=== PATIENT | female | born 1990 | race Two or more races ===

== ENCOUNTER 2022-03-31 09:32 | Outpatient (CLI) | payer OTHER | END 2022-03-31 09:36 | disposition home or self-care (01) | LOC: RAD 09:32 | PROVIDERS: ATTEND Obstetrics & Gynecology | DX: N92.0 Excessive and frequent menstruation with regular cycle (principal) ==

== ENCOUNTER 2023-11-19 16:50 | Emergency (ER) | payer OTHER ==
[~2023-11-19] VITALS: Ht 147.3 cm; Wt 60.8 kg
[2023-11-19 17:27] LABS: HEMATOCRIT 32.4 % (36.0-45.00); HEMOGLOBIN 10.4 g/dL (12.0-15.00); MEAN CELL VOLUME 72.1 fL (80.00-100.00); MEAN CORPUSCULAR HEMOGLOBIN 23.1 pg (27.00-32.0); PLATELET COUNT 422 K/uL (150-450)
== END 2023-11-19 19:45 | disposition home or self-care (01) ==
LOC: ER 16:50
PROVIDERS: Emergency Medicine
DX: O20.8 Other hemorrhage in early pregnancy (principal); Z3A.01 Less than 8 weeks gestation of pregnancy

== ENCOUNTER 2023-11-23 19:47 | Emergency (ER) | payer OTHER ==
[~2023-11-23] VITALS: Ht 147.3 cm; Wt 60.3 kg
== END 2023-11-24 03:51 | disposition home or self-care (01) ==
LOC: ER 19:47
DX: K59.01 Slow transit constipation (principal); R10.9 Unspecified abdominal pain; Z3A.08 8 weeks gestation of pregnancy

== ENCOUNTER 2023-12-22 09:59 | Outpatient (CLI) | payer OTHER | END 2023-12-22 10:09 | disposition home or self-care (01) | LOC: PRENATAL 09:59 | PROVIDERS: ATTEND Obstetrics & Gynecology Maternal & Fetal Medicine | DX: O36.80X0 Pregnancy with inconclusive fetal viability, not applicable or unspecified (principal); Z36.82 Encounter for antenatal screening for nuchal translucency; Z3A.12 12 weeks gestation of pregnancy ==

== ENCOUNTER 2024-05-06 10:00 | Outpatient (CLI) | payer OTHER ==
[~2024-05-06 10:00] MED LIST: FOLIC ACID0.8 M1 PO; PRENATAL TABLE1 EAC1 PO
== END 2024-05-06 10:01 | disposition home or self-care (01) ==
LOC: PRENATAL 10:00
PROVIDERS: ATTEND Obstetrics & Gynecology Maternal & Fetal Medicine
DX: O26.849 Uterine size-date discrepancy, unspecified trimester (principal); O36.8199 Decreased fetal movements, unspecified trimester, other fetus; Z3A.32 32 weeks gestation of pregnancy

== ENCOUNTER 2024-06-18 13:45 | Inpatient (IN) | payer OTHER ==
[~2024-06-18] VITALS: Ht 147.3 cm; Wt 77.6 kg
[2024-06-29 11:51] VITALS: BP 134/75
[2024-06-30] VITALS (8 sets, daily range): BP systolic 111–133; BP diastolic 67–83
[2024-06-30] MEDS ORDERED: MORPHINE SULFATE 4 MG/ML CARTRIDGE IV ONE (00:45)
[2024-06-30] MEDS ORDERED: RINGERS SOLUTION,LACTATED 1,000 ML IV SCH (00:45)
[2024-06-30 01:31] LABS: INR < 0.93; PARTIAL THROMBOPLASTIN TIME 25.3 SECONDS (22.0-34.0); PROTHROMBIN TIME 9.9 SECONDS (9.0-11.5)
[2024-06-30 01:33] LABS: URINE APPEARANCE Clear; URINE BILIRRUBIN Negative (NEGATIVE); URINE BLOOD Trace; URINE COLOR Yellow; URINE GLUCOSE Negative (NEGATIVE); URINE KETONE Negative (NEGATIVE); URINE LEUKOCYTE Large; URINE NITRATE Negative; URINE PROTEIN Negative (NEGATIVE); URINE UROBILINOGEN 0.2 E.U./dl
[2024-06-30 01:36] LABS: URINE BACTERIA 2747.8 uL (0.0-1933); URINE EPITHELIAL CELLS 57.3 uL (0.0-38.8); URINE WBC 94.6 uL (0.0-23.2)
[2024-06-30 01:38] LABS: URINE RBC 1.3 uL (0.0-20.8)
[2024-06-30 01:39] LABS: HEMATOCRIT 36.9 % (36.0-45.00); HEMOGLOBIN 12.4 g/dL (12.0-15.00); MEAN CELL VOLUME 84.7 fL (80.00-100.00); MEAN CORPUSCULAR HEMOGLOBIN 28.6 pg (27.00-32.0); MEAN CORPUSCULAR HGB CONC 33.7 g/dl (32.0-36.0); PLATELET COUNT 271 K/uL (150-450); RED BLOOD COUNT 4.36 M/uL (4.00-6.00); RED CELL DISTRIBUTION WIDTH 13.8 % (11.5-14.5)
[2024-06-30 02:12] LABS: ALBUMIN 2.7 gm/dL (3.4-5.0); BILIRUBIN TOTAL 0.3 mg/dL (0.3-1.2); CALCIUM 9.3 mg/dL (8.5-10.1); CREATININE SERUM 0.46 mg/dL (0.55-1.02); GFR 157.42; GLOBULINA 4.3 G/DL (2.4-3.5); POTASSIUM 4.25 mEq/L (3.5-5.1)
[2024-06-30] MEDS ORDERED: FAMOtidine 10 MG/ML (4ML VIAL) IV ONE (03:30)
[2024-06-30] MEDS ORDERED: OXYTOCIN 500 ML IV SCH (08:00)
[2024-06-30] MEDS ORDERED: IBUprofen 400 MG TABLET PO PRN (10:45)
[2024-06-30] MEDS ORDERED: ERYTHROMYCIN BASE OPHT 1GM EACH TUBE OP ONE (11:00)
[2024-06-30] MEDS ORDERED: LIDOCAINE HCL 1% 10ML VIAL IJ ONE (11:00)
[2024-06-30] MEDS ORDERED: CHLORHEXIDINE GLUCONATE 120 ML BOTTLE TOP ONE (11:00)
[2024-06-30] MEDS ORDERED: OXYTOCIN 1,000 ML IV SCH (11:00)
[2024-06-30 18:49] LABS: HEMATOCRIT 35.3 % (36.0-45.00); HEMOGLOBIN 11.5 g/dL (12.0-15.00); MEAN CELL VOLUME 83.8 fL (80.00-100.00); MEAN CORPUSCULAR HEMOGLOBIN 27.4 pg (27.00-32.0); MEAN CORPUSCULAR HGB CONC 32.6 g/dl (32.0-36.0); PLATELET COUNT 244 K/uL (150-450); RED BLOOD COUNT 4.21 M/uL (4.00-6.00); RED CELL DISTRIBUTION WIDTH 13.8 % (11.5-14.5)
[2024-07-01] VITALS: BP 118/83
[2024-07-01 08:20] VITALS: BP 133/86
[2024-07-01] MEDS ORDERED: PNV,CALCIUM 72/IRON/FOLIC ACID 1 TAB TABLET PO SCH (09:00)
[2024-07-01 13:54] VITALS: BP 118/83
[2024-07-01 16:27] VITALS: BP 109/74
[2024-07-02 00:35] VITALS: BP 131/86
[2024-07-02 04:00] VITALS: BP 119/81
[2024-07-02 08:14] VITALS: BP 119/80
== END 2024-07-02 12:09 | disposition home or self-care (01) | DRG 807 ==
LOC: OB/GYN 06-29 13:45 → LDR 06-30 00:24 → OB/GYN 06-30 00:24
PROVIDERS: ADMIT Obstetrics & Gynecology; ATTEND Obstetrics & Gynecology
PROC: 10E0XZZ Delivery of Products of Conception, External Approach (ICD-10-PCS; principal; 2024-06-30)
PROC: 0KQM0ZZ Repair Perineum Muscle, Open Approach (ICD-10-PCS; 2024-06-30)
PROC: 0UQG7ZZ Repair Vagina, Via Natural or Artificial Opening (ICD-10-PCS; 2024-06-30)
PROC: 4A1HXCZ Monitoring of Products of Conception, Cardiac Rate, External Approach (ICD-10-PCS; 2024-06-30)
DX: O70.1 Second degree perineal laceration during delivery (principal); Z37.0 Single live birth; Z3A.40 40 weeks gestation of pregnancy; Z20.822 Contact with and (suspected) exposure to COVID-19